=== PATIENT | male | born 1990 | race African-American/Black ===

== ENCOUNTER 2017-04-11 21:14 | Emergency (ER) | payer MEDICAID ==
[~2017-04-11] VITALS: Ht 188 cm; Wt 71.0 kg
[2017-04-11] MEDS ORDERED: KETOROLAC 60MG/2ML VIAL IM ONE (23:45)
[2017-04-12 03:35] VITALS: BP 121/75
== END 2017-04-12 03:43 | disposition home or self-care (01) ==
LOC: ER 22:11
DX: M54.5 Low back pain (principal); J02.9 Acute pharyngitis, unspecified; J45.909 Unspecified asthma, uncomplicated; F12.10 Cannabis abuse, uncomplicated; X50.0XXA Overexertion from strenuous movement or load, initial encounter; Y93.89 Activity, other specified; Y92.018 Other place in single-family (private) house as the place of occurrence of the external cause
CPT/HCPCS: 71045; 96372; 99283; J1885

== ENCOUNTER 2017-04-20 19:29 | Emergency (ER) | payer MEDICAID ==
[~2017-04-20] VITALS: Ht 188 cm; Wt 68.0 kg
[2017-04-20 20:03] VITALS: BP 104/57
== END 2017-04-21 | disposition left against medical advice (07) ==
LOC: ER 19:29
DX: Z53.21 Procedure and treatment not carried out due to patient leaving prior to being seen by health care provider (principal)